=== PATIENT | female | born 1995 | race Caucasian/White ===

== ENCOUNTER → 2016-08-12 | Outpatient (CLI) | payer MEDICAID ==
[~2016-08-12] MED LIST: DOCU-30 PO; HYDR-3240 PO; IBUP-1222 PO; PREN1TAB56 PO; ZOLP10TA PO
== END | disposition home or self-care (01) ==
LOC: RAD 10:30
PROVIDERS: ATTEND Student in an Organized Health Care Education/Training Program
DX: R10.2 Pelvic and perineal pain (principal); R10.9 Unspecified abdominal pain; Z97.5 Presence of (intrauterine) contraceptive device
CPT/HCPCS: 76856

== ENCOUNTER 2016-11-02 16:59 | Emergency (ER) | payer MEDICAID ==
[~2016-11-02] VITALS: Ht 175.3 cm; Wt 76.4 kg
[2016-11-02 18:17] LABS: ASPARTATE AMINO TRANSFERASE 14 U/L (15-37); BLOOD UREA NITROGEN 13 mg/dL (7-18)
[2016-11-02] MEDS ORDERED: ONDANSETRON ODT 4 MG PO ONE (19:30)
[2016-11-02 20:07] LABS: HCG UR OBC PASS
[2016-11-02 20:31] VITALS: BP 105/57
== END 2016-11-02 21:07 | disposition home or self-care (01) ==
LOC: ED 21:06
DX: R10.2 Pelvic and perineal pain (principal); Z88.8 Allergy status to other drugs, medicaments and biological substances
CPT/HCPCS: 36415; 76830; 80053; 81003; 81025; 84703; 85025; 99285

== ENCOUNTER 2020-07-01 16:34 | Emergency (ER) | payer SELFPAY ==
[~2020-07-01] VITALS: Ht 180.3 cm; Wt 65.1 kg
[~2020-07-01 16:34] MED LIST changes: +DOCU-131 PO; -DOCU-30 PO; +HYDR-1067 PO; -HYDR-3240 PO
[2020-07-01] MEDS ORDERED: METOCLOPRAMIDE 5 MG/ML, 2ML IVPush ONE (17:30)
[2020-07-01] MEDS ORDERED: KETOROLAC 30 MG/1 ML IVPush ONE (17:30)
[2020-07-01] MEDS ORDERED: SODIUM CHLORIDE 0.9% 1,000ML IVBOLUS ONE (17:30)
[2020-07-01] MEDS ORDERED: DIPHENHYDRAMINE 50 MG/ML, 1ML IM ONE (17:30)
[2020-07-01] MEDS ORDERED: KETOROLAC 30 MG/1 ML ONE (17:32)
[2020-07-01] MEDS ORDERED: DIPHENHYDRAMINE 50 MG/ML, 1ML ONE (17:32)
[2020-07-01] MEDS ORDERED: METOCLOPRAMIDE 5 MG/ML, 2ML ONE (17:32)
[2020-07-01 18:35] VITALS: BP 98/57
== END 2020-07-01 19:20 | disposition home or self-care (01) ==
LOC: ED 19:00
DX: G43.909 Migraine, unspecified, not intractable, without status migrainosus (principal); R11.0 Nausea; H53.149 Visual discomfort, unspecified
CPT/HCPCS: 96361; 96372; 96374; 96375; 99284; J1200; J1885; J2765; J7030

== ENCOUNTER 2020-08-21 12:54 | Emergency (ER) | payer MEDICAID ==
[~2020-08-21] VITALS: Ht 180.3 cm; Wt 65.9 kg
[~2020-08-21 12:54] MED LIST changes: -HYDR-1067 PO; +HYDR-2214 PO
--- NOTE | 2020-08-21 13:21 | NUR ---
INTERPRETIVE NATURALIST: PT PROVIDED URINE SAMPLE. UA ORDERED PER PROTOCOL AND SENT TO LAB.
[2020-08-21 13:39] LABS: MICROSCOPIC NOT IND
--- NOTE | 2020-08-21 14:06 | NUR ---
DUMPLING MACHINE OPERATOR: PT TO ROOM FROM LOBBY VIA W/C
[2020-08-21] MEDS ORDERED: ONDANSETRON 2MG/ML, 2ML ONE (14:23)
[2020-08-21] MEDS ORDERED: SODIUM CHLORIDE 0.9% 1,000ML IVBOLUS ONE (14:30)
[2020-08-21] MEDS ORDERED: ONDANSETRON 2MG/ML, 2ML IVPush ONE (14:30)
[2020-08-21 14:39] LABS: MEAN CORPUSCULAR HEMOGLOBIN 27.3 pg (27.0-34.8); MEAN CORPUSCULAR HGB CONC 33.5 g/dL (32.4-35.8); MEAN PLATELET VOLUME 8.1 fL (7.4-10.4); PLATELET COUNT 379 x10^3/uL (130-400); RED BLOOD COUNT 4.56 x10^6/uL (3.82-5.3); RED CELL DISTRIBUTION WIDTH 13.7 % (9.6-15.2)
--- NOTE | 2020-08-21 14:40 | NUR ---
IV PLACED, MEDS AND IVF GIVEN PER ERP ORDER. CALL LIGHT WITHIN REACH, WARM BLANKET PROVIDED. VSS/UPDATED IN COMPUTER.
[2020-08-21 14:44] LABS: ALBUMIN 3.4 g/dL (3.4-5.0); ANION GAP 4 mmol/L (5-15); CALCIUM 8.5 mg/dL (8.5-10.1); CHLORIDE 107 mmol/L (98-107)
[2020-08-21 14:49] LABS: ALANINE AMINOTRANSFERASE 22 U/L (12-78); ALKALINE PHOSPHATASE 63 U/L (45-117); BILIRUBIN,TOTAL 0.8 mg/dL (0.2-1.0); CREATININE 0.53 mg/dL (0.55-1.02)
[2020-08-21 15:13] LABS: MD YES
[2020-08-21 15:16] LABS: <PLATELET ESTIMATE> ADEQUATE; <PLT MORPHOLOGY> NORMAL PLT MORPH; BAND#(MANUAL) 0.28 x10^3/uL; BANDS%(MANUAL) 3 % (0-7); LYMPH#(MANUAL) 1.21 x10^3/uL (1-3.4); LYMPHS% (MANUAL) 13 % (22-44); OVALOCYTES 1+; REACTIVE LYMPHS # (MANUAL) 0.09 x10^3/uL (0-0); REACTIVE LYMPHS % (MANUAL) 1 % (0-0); SEG#(MANUAL) 7.72 x10^3/uL (1.8-6.8); SEGS% (MANUAL) 83 % (42-75)
[2020-08-21] MEDS ORDERED: MORPHINE SULFATE 4 MG/ML, 1ML ONE ×2 (15:29→17:58)
[2020-08-21] MEDS: MORPHINE SULFATE 4 MG/ML, 1ML IVPush PRN ×2 (15:32→18:07)
--- NOTE | 2020-08-21 15:35 | NUR ---
PT MEDICATED PER ERP ORDER FOR ABD PAIN 11/25. NAUSEA GONE FOLLOWING ZOFRAN EARLIER. PT UPDATED ON POC. CALL LIGHT WITHIN REACH.
--- NOTE | 2020-08-21 16:57 | NUR ---
PT TO CT.
[2020-08-21] MEDS ORDERED: OMNIPAQUE 350 MG/ML, 100ML BOTTLE ONE (17:10)
[2020-08-21 18:08] VITALS: BP 96/50
== END 2020-08-21 18:10 | disposition home or self-care (01) ==
LOC: ED 14:49
DX: K52.9 Noninfective gastroenteritis and colitis, unspecified (principal); R10.31 Right lower quadrant pain; R11.2 Nausea with vomiting, unspecified; G43.909 Migraine, unspecified, not intractable, without status migrainosus
CPT/HCPCS: 36415; 74177; 80053; 81003; 83690; 84703; 85025; 86850; 86900; 96374; 96375; 96376; 99285; J2270; J2405; J7030; Q9967

== ENCOUNTER 2020-08-26 19:48 | Emergency (ER) | payer MEDICAID ==
[~2020-08-26] VITALS: Ht 180.3 cm; Wt 63.7 kg
[2020-08-26 20:01] VITALS: BP 98/71
[2020-08-26 20:22] LABS: BASOPHILS % (AUTO) 1 % (0-1); EOSINOPHILS % (AUTO) 2 % (1-7); LYMPHOCYTES % (AUTO) 26 % (22-44); MEAN CORPUSCULAR HEMOGLOBIN 27.6 pg (27.0-34.8); MEAN CORPUSCULAR HGB CONC 33.7 g/dL (32.4-35.8); MEAN PLATELET VOLUME 7.6 fL (7.4-10.4); MONOCYTES % (AUTO) 6 % (2-9); NEUTROPHILS % (AUTO) 66 % (42-75); PLATELET COUNT 413 x10^3/uL (130-400); RED BLOOD COUNT 5.08 x10^6/uL (3.82-5.3); RED CELL DISTRIBUTION WIDTH 14.3 % (9.6-15.2)
[2020-08-26 20:24] LABS: MD NO
[2020-08-26] MEDS ORDERED: PROMETHAZINE 25 MG/ML, 1ML IM ONE (20:30)
[2020-08-26] MEDS ORDERED: SODIUM CHLORIDE 0.9% 1,000ML IVBOLUS ONE (20:30)
[2020-08-26 20:35] LABS: ALANINE AMINOTRANSFERASE 26 U/L (12-78); ANION GAP 3 mmol/L (5-15); CALCIUM 9.5 mg/dL (8.5-10.1); CHLORIDE 103 mmol/L (98-107); CREATININE 0.66 mg/dL (0.55-1.02)
[2020-08-26 20:37] LABS: ALKALINE PHOSPHATASE 60 U/L (45-117); BILIRUBIN,TOTAL 1.1 mg/dL (0.2-1.0); TOTAL PROTEIN 8.2 g/dL (6.4-8.2)
--- NOTE | 2020-08-26 22:15 | NUR ---
PT TO ROOM FROM LOBBY
[2020-08-26] MEDS ORDERED: PROMETHAZINE 25 MG/ML, 1ML ONE (22:22)
[2020-08-26] MEDS ORDERED: MORPHINE SULFATE 4 MG/ML, 1ML IVPush PRN (22:30)
[2020-08-26] MEDS ORDERED: MORPHINE SULFATE 4 MG/ML, 1ML ONE (22:48)
--- NOTE | 2020-08-26 23:19 | NUR ---
pt laying in bed with significant other at bedside, all needs in reach, call light in reach, pt was having severe abdominal pain and nausea, meds given, pt states she is feeling a little better now
--- NOTE | 2020-08-26 23:44 | NUR ---
pt asked to go to the bathroom, this RN disconnected pt from iv, pt ambulated to the bathroom
== END 2020-08-27 00:26 | disposition home or self-care (01) ==
LOC: ED 23:03
DX: K52.9 Noninfective gastroenteritis and colitis, unspecified (principal); R10.84 Generalized abdominal pain; F17.210 Nicotine dependence, cigarettes, uncomplicated
CPT/HCPCS: 36415; 80053; 84703; 85025; 96372; 96374; 99284; 99406; J2270; J2550; J7030

== ENCOUNTER 2020-08-28 17:41 | Inpatient (IN) | payer MEDICAID ==
[~2020-08-28] VITALS: Ht 180.3 cm; Wt 66.9 kg
--- NOTE | 2020-08-28 18:03 | NUR ---
PATIENT WALKED BACK FROM TRIAGE WITH CHIEF C/O OF ABD PAIN AND LOSS OF APPETITE. PER PATIENT ISSUE HAS BEEN ONGOING FOR THE LAST WEEK. PATIENT HAS BEEN SEEN X2 IN THE LAST WEEK. PATIENT REPORTS N/V/D AND STATES IT'S DUE TO AN AUTOIMMUNE DISEASE. NADN, CONNECTED TO ALL MONITORS, CALL LIGHT WITHIN REACH.
--- NOTE | 2020-08-28 18:10 | NUR ---
ERMD AT BEDSIDE FOR EVALUATION.
[2020-08-28] MEDS ORDERED: ONDANSETRON 2MG/ML, 2ML ONE (18:27)
--- NOTE | 2020-08-28 18:29 | NUR ---
20 GAUGE IV STARTED RIGHT UPPER ARM, LABS DRAWN, LABELLED AND GIVEN TO HOLIDAY DETECTOR OPERATOR, PATIENT MEDICATED PER eMAR. UA COLLECTED AND SENT TO LAB.
[2020-08-28] MEDS ORDERED: SODIUM CHLORIDE FLUSH 10ML SYR IVF ONE (18:30)
[2020-08-28] MEDS ORDERED: SODIUM CHLORIDE 0.9% 1,000ML IVBOLUS ONE (18:30)
[2020-08-28] MEDS ORDERED: ONDANSETRON 2MG/ML, 2ML IVPush ONE (18:30)
[2020-08-28 18:35] LABS: BASOPHILS % (AUTO) 1 % (0-1); EOSINOPHILS % (AUTO) 2 % (1-7); LYMPHOCYTES % (AUTO) 26 % (22-44); MEAN CORPUSCULAR HEMOGLOBIN 27.2 pg (27.0-34.8); MEAN PLATELET VOLUME 7.8 fL (7.4-10.4); MONOCYTES % (AUTO) 10 % (2-9); NEUTROPHILS % (AUTO) 61 % (42-75); PLATELET COUNT 339 x10^3/uL (130-400); RED BLOOD COUNT 4.68 x10^6/uL (3.82-5.3)
[2020-08-28 18:43] LABS: ALANINE AMINOTRANSFERASE 37 U/L (12-78); ALBUMIN 3.7 g/dL (3.4-5.0); ANION GAP 5 mmol/L (5-15); CALCIUM 8.9 mg/dL (8.5-10.1); CHLORIDE 104 mmol/L (98-107); CREATININE 0.53 mg/dL (0.55-1.02)
[2020-08-28 18:47] LABS: ALKALINE PHOSPHATASE 63 U/L (45-117); BILIRUBIN,TOTAL 0.8 mg/dL (0.2-1.0); TOTAL PROTEIN 7.4 g/dL (6.4-8.2)
[2020-08-28 18:52] LABS: MD NO
[2020-08-28 18:57] LABS: MICROSCOPIC INDICATED
[2020-08-28 19:56] LABS: HCT (SEDRATE) 38.5 % (34.6-47.8)
[2020-08-28] MEDS ORDERED: SODIUM CHLORIDE FLUSH 10ML SYR IVF PRN (20:00)
[2020-08-28] MEDS ORDERED: SODIUM CHLORIDE 0.9% 1,000 ML IV ONE (20:00)
[2020-08-28] MEDS ORDERED: ONDANSETRON 2MG/ML, 2ML IVPush PRN (20:30)
[2020-08-28] MEDS ORDERED: BISACODYL 10 MG SUPP PR PRN (20:30)
[2020-08-28 20:47] VITALS: BP 91/60
[2020-08-28] MEDS: PROCHLORPERAZINE 5 MG/ML, 2ML IVPush PRN (21:58)
[2020-08-28] MEDS: SODIUM CHLORIDE 0.9% 1,000 ML IV SCH (21:58)
[2020-08-28] MEDS: HYDROmorphone 2 MG/ML, 1ML IVPush PRN (21:58)
[2020-08-29 00:25] VITALS: BP 93/57
[2020-08-29] MEDS: HYDROmorphone 2 MG/ML, 1ML IVPush PRN ×4 (01:07→14:06)
[2020-08-29 05:21] LABS: BASOPHILS % (AUTO) 1 % (0-1); EOSINOPHILS % (AUTO) 4 % (1-7); LYMPHOCYTES % (AUTO) 43 % (22-44); MEAN CORPUSCULAR HEMOGLOBIN 27.4 pg (27.0-34.8); MEAN CORPUSCULAR HGB CONC 33.3 g/dL (32.4-35.8); MEAN PLATELET VOLUME 7.7 fL (7.4-10.4); MONOCYTES % (AUTO) 11 % (2-9); NEUTROPHILS % (AUTO) 41 % (42-75); PLATELET COUNT 290 x10^3/uL (130-400); RED BLOOD COUNT 4.04 x10^6/uL (3.82-5.3)
[2020-08-29 05:23] LABS: MD NO
[2020-08-29 05:30] LABS: ANION GAP 3 mmol/L (5-15); CALCIUM 8.1 mg/dL (8.5-10.1); CHLORIDE 110 mmol/L (98-107); CREATININE 0.39 mg/dL (0.55-1.02)
[2020-08-29] MEDS: SODIUM CHLORIDE 0.9% 1,000 ML IV SCH ×2 (05:38→14:07)
[2020-08-29 06:20] VITALS: BP 94/60
[2020-08-29] MEDS: PROCHLORPERAZINE 5 MG/ML, 2ML IVPush PRN (10:30)
[2020-08-29] MEDS ORDERED: OMNIPAQUE 350 MG/ML, 100ML BOTTLE ONE (14:02)
[2020-08-29 14:09] VITALS: BP 110/69
== END 2020-08-29 17:02 | disposition left against medical advice (07) | DRG 544 ==
LOC: ED 18:36 → EDIP 19:32 → 3N 20:36
PROVIDERS: ADMIT Internal Medicine; ATTEND Internal Medicine
DX: M31.30 Wegener's granulomatosis without renal involvement (principal); Z53.29 Procedure and treatment not carried out because of patient's decision for other reasons; F12.90 Cannabis use, unspecified, uncomplicated; G43.909 Migraine, unspecified, not intractable, without status migrainosus; K21.9 Gastro-esophageal reflux disease without esophagitis; N80.9 Endometriosis, unspecified; Z88.8 Allergy status to other drugs, medicaments and biological substances
CPT/HCPCS: 36415; 74177; 80048; 80053; 81001; 83690; 83735; 84703; 85025; 85651; 87086; G0378; J1170; J2405; Q9967; J0780; J7030

== ENCOUNTER 2020-11-21 11:22 | Emergency (ER) | payer MEDICAID ==
[~2020-11-21] VITALS: Ht 180.3 cm; Wt 62.4 kg
--- NOTE | 2020-11-21 11:33 | NUR ---
retention manager: EKG done in triage
[2020-11-21] MEDS ORDERED: MAALOX/HYOSCYAMINE/LIDOCAINE 45 ML BTL PO ONE (12:00)
[2020-11-21] MEDS ORDERED: FAMOTIDINE 20 MG/2 ML IVPush ONE (12:00)
[2020-11-21] MEDS ORDERED: SODIUM CHLORIDE 0.9% 1,000ML IVBOLUS ONE (12:00)
[2020-11-21] MEDS ORDERED: ONDANSETRON 2MG/ML, 2ML IVPush ONE (12:00)
[2020-11-21] MEDS ORDERED: ONDANSETRON 2MG/ML, 2ML ONE (12:17)
[2020-11-21] MEDS ORDERED: FAMOTIDINE 20 MG/2 ML ONE (12:17)
[2020-11-21] MEDS ORDERED: MAALOX/HYOSCYAMINE/LIDOCAINE 45 ML BTL ONE (12:17)
[2020-11-21 12:23] LABS: BASOPHILS % (AUTO) 1 % (0-1); EOSINOPHILS % (AUTO) 5 % (1-7); LYMPHOCYTES % (AUTO) 40 % (22-44); MEAN CORPUSCULAR HEMOGLOBIN 28.1 pg (27.0-34.8); MEAN CORPUSCULAR HGB CONC 34.1 g/dL (32.4-35.8); MEAN PLATELET VOLUME 8.4 fL (7.4-10.4); MONOCYTES % (AUTO) 8 % (2-9); NEUTROPHILS % (AUTO) 46 % (42-75); PLATELET COUNT 274 x10^3/uL (130-400); RED BLOOD COUNT 4.55 x10^6/uL (3.82-5.3); RED CELL DISTRIBUTION WIDTH 14.6 % (9.6-15.2)
--- NOTE | 2020-11-21 12:30 | NUR ---
PT OFF THE FLOOR TO XRAY
[2020-11-21 12:35] LABS: ALANINE AMINOTRANSFERASE 18 U/L (12-78); ALBUMIN 3.6 g/dL (3.4-5.0); ANION GAP 3 mmol/L (5-15); CALCIUM 8.8 mg/dL (8.5-10.1); CHLORIDE 110 mmol/L (98-107); CREATININE 0.52 mg/dL (0.55-1.02)
[2020-11-21 12:40] LABS: ALKALINE PHOSPHATASE 59 U/L (45-117); BILIRUBIN,TOTAL 0.9 mg/dL (0.2-1.0); TOTAL PROTEIN 7.6 g/dL (6.4-8.2)
[2020-11-21 13:05] LABS: MICROSCOPIC INDICATED
[2020-11-21] MEDS ORDERED: MORPHINE SULFATE 4 MG/ML, 1ML IVPush PRN (14:00)
[2020-11-21] MEDS ORDERED: MORPHINE SULFATE 4 MG/ML, 1ML ONE (14:25)
[2020-11-21 14:56] VITALS: BP 98/56
== END 2020-11-21 15:12 | disposition home or self-care (01) ==
LOC: ED 13:02
DX: N30.00 Acute cystitis without hematuria (principal); R10.84 Generalized abdominal pain; R11.2 Nausea with vomiting, unspecified; G43.909 Migraine, unspecified, not intractable, without status migrainosus
CPT/HCPCS: 36415; 74022; 80053; 81001; 83690; 84703; 85025; 87086; 93005; 96361; 96374; 96375; 99285; J2270; J2405; J7030

== ENCOUNTER 2020-11-25 14:23 | Emergency (ER) | payer MEDICAID ==
[~2020-11-25] VITALS: Ht 180.3 cm; Wt 52.2 kg
[2020-11-25 14:27] VITALS: BP 110/65
[2020-11-25] MEDS ORDERED: SODIUM CHLORIDE FLUSH 10ML SYR IVF ONE (15:00)
[2020-11-25] MEDS ORDERED: SODIUM CHLORIDE 0.9% 1,000ML IVBOLUS ONE (15:00)
[2020-11-25] MEDS ORDERED: ONDANSETRON 2MG/ML, 2ML IVPush ONE (15:00)
--- NOTE | 2020-11-25 15:11 | NUR ---
PT IN GOWN IN [facility]; PT ATTACHED TO ALL VS MONITORS. VSS AT THIS TIME. PT EDUCATED ON ER PROCESS AND POC AND VERBALIZES UNDERSTANDING. PT HAS CALL LIGHT WITHIN REACH.
[2020-11-25] MEDS ORDERED: ONDANSETRON 2MG/ML, 2ML ONE (15:14)
[2020-11-25] MEDS ORDERED: MORPHINE SULFATE 4 MG/ML, 1ML ONE ×2 (15:15→16:38)
[2020-11-25] MEDS: MORPHINE SULFATE 4 MG/ML, 1ML IVPush PRN ×2 (15:20→16:41)
--- NOTE | 2020-11-25 15:20 | NUR ---
pt medicated per mar
[2020-11-25 15:42] LABS: BASOPHILS % (AUTO) 1 % (0-1); EOSINOPHILS % (AUTO) 6 % (1-7); LYMPHOCYTES % (AUTO) 33 % (22-44); MEAN CORPUSCULAR HEMOGLOBIN 27.6 pg (27.0-34.8); MEAN CORPUSCULAR HGB CONC 33.6 g/dL (32.4-35.8); MEAN PLATELET VOLUME 8.6 fL (7.4-10.4); MONOCYTES % (AUTO) 8 % (2-9); NEUTROPHILS % (AUTO) 53 % (42-75); PLATELET COUNT 288 x10^3/uL (130-400); RED BLOOD COUNT 4.81 x10^6/uL (3.82-5.3); RED CELL DISTRIBUTION WIDTH 14.6 % (9.6-15.2)
[2020-11-25 15:53] LABS: ALBUMIN 3.8 g/dL (3.4-5.0); ANION GAP 4 mmol/L (5-15); CALCIUM 8.9 mg/dL (8.5-10.1); CHLORIDE 105 mmol/L (98-107)
[2020-11-25 15:59] LABS: ALANINE AMINOTRANSFERASE 24 U/L (12-78); ALKALINE PHOSPHATASE 69 U/L (45-117); TOTAL PROTEIN 7.9 g/dL (6.4-8.2)
[2020-11-25 16:16] LABS: MICROSCOPIC INDICATED
--- NOTE | 2020-11-25 16:30 | NUR ---
TASK RN: WITH REASSESSMENT NAUSEA COMPLETELY IMPROVED. HOWEVER, PAIN TO R/L LOWER PELVIS REMAIN. ERP MADE AWARE
[2020-11-25] MEDS ORDERED: MAALOX/HYOSCYAMINE/LIDOCAINE 45 ML BTL ONE (16:40)
[2020-11-25] MEDS ORDERED: KETOROLAC 30 MG/1 ML ONE (16:40)
[2020-11-25] MEDS ORDERED: MAALOX/HYOSCYAMINE/LIDOCAINE 45 ML BTL PO ONE (17:00)
[2020-11-25] MEDS ORDERED: KETOROLAC 15 MG/1ML IVPush ONE (17:00)
[2020-11-25] MEDS ORDERED: KETOROLAC 30 MG/1 ML IVPush ONE (17:00)
--- NOTE | 2020-11-25 17:01 | NUR ---
PO CHALLENGE UNREMARKABLE
--- NOTE | 2020-11-25 17:28 | NUR ---
PT D/C WITH D/C SUMMARY AND SCRIPTS. ALL QUESTIONS ANSWERED. PT AMBULATES TO REGISTRATION DESK WITH STEADY GAIT FOR D/C HOME. PT PIV D/C WITH TIP INTACT. PT DENIES ANY OTHER NEEDS PERTAINING TO THIS VISIT.
== END 2020-11-25 17:36 | disposition home or self-care (01) ==
LOC: ED 14:54
DX: R10.84 Generalized abdominal pain (principal); R11.2 Nausea with vomiting, unspecified; F17.200 Nicotine dependence, unspecified, uncomplicated; Z88.1 Allergy status to other antibiotic agents; Z88.7 Allergy status to serum and vaccine
CPT/HCPCS: 36415; 80053; 81001; 83690; 84703; 85025; 87086; 96361; 96374; 96375; 96376; 99284; J1885; J2270; J2405; J7030

== ENCOUNTER 2020-11-26 20:04 | Emergency (ER) | payer MEDICAID ==
[~2020-11-26] VITALS: Ht 180.3 cm; Wt 61.8 kg
[2020-11-26] MEDS ORDERED: ONDANSETRON ODT 4 MG PO ONE (21:00)
[2020-11-26 21:12] LABS: BASOPHILS % (AUTO) 0 % (0-1); EOSINOPHILS % (AUTO) 4 % (1-7); LYMPHOCYTES % (AUTO) 31 % (22-44); MEAN CORPUSCULAR HEMOGLOBIN 27.6 pg (27.0-34.8); MEAN CORPUSCULAR HGB CONC 33.7 g/dL (32.4-35.8); MEAN PLATELET VOLUME 8.3 fL (7.4-10.4); MONOCYTES % (AUTO) 9 % (2-9); NEUTROPHILS % (AUTO) 56 % (42-75); PLATELET COUNT 289 x10^3/uL (130-400); RED BLOOD COUNT 4.71 x10^6/uL (3.82-5.3); RED CELL DISTRIBUTION WIDTH 14.9 % (9.6-15.2)
[2020-11-26 21:24] LABS: ALANINE AMINOTRANSFERASE 22 U/L (12-78); ALBUMIN 3.9 g/dL (3.4-5.0); ANION GAP 4 mmol/L (5-15); CALCIUM 8.9 mg/dL (8.5-10.1); CHLORIDE 104 mmol/L (98-107); CREATININE 0.62 mg/dL (0.55-1.02)
[2020-11-26 21:28] LABS: ALKALINE PHOSPHATASE 70 U/L (45-117); BILIRUBIN,TOTAL 0.8 mg/dL (0.2-1.0)
[2020-11-26] MEDS ORDERED: ONDANSETRON ODT 4 MG ONE (21:58)
[2020-11-26] MEDS ORDERED: PROMETHAZINE 25 MG/ML, 1ML ONE (22:16)
[2020-11-26] MEDS ORDERED: METOCLOPRAMIDE 5 MG/ML, 2ML ONE (22:16)
[2020-11-26] MEDS ORDERED: MORPHINE SULFATE 4 MG/ML, 1ML ONE (22:17)
[2020-11-26] MEDS ORDERED: SODIUM CHLORIDE FLUSH 10ML SYR IVF ONE (22:30)
[2020-11-26] MEDS ORDERED: PROMETHAZINE 25 MG/ML, 1ML IM ONE (22:30)
[2020-11-26] MEDS ORDERED: SODIUM CHLORIDE 0.9% 1,000ML IVBOLUS ONE (22:30)
[2020-11-26] MEDS ORDERED: METOCLOPRAMIDE 5 MG/ML, 2ML IVPush ONE (22:30)
[2020-11-26] MEDS ORDERED: MORPHINE SULFATE 4 MG/ML, 1ML IVPush PRN (22:30)
--- NOTE | 2020-11-26 22:45 | NUR ---
PATIENT UPDATED ON PLAN OF CARE. PT GIVEN MEDS PER MAR, TOLERATED WELL. PATIENT DENIES ANY ADDITIONAL NEEDS AT THIS TIME. VSS. WILL CONTINUE TO MONITOR.
[2020-11-27 00:01] VITALS: BP 98/56
== END 2020-11-27 00:03 | disposition home or self-care (01) ==
LOC: ED 22:02
DX: R10.84 Generalized abdominal pain (principal); R11.2 Nausea with vomiting, unspecified; G43.909 Migraine, unspecified, not intractable, without status migrainosus; F17.200 Nicotine dependence, unspecified, uncomplicated
CPT/HCPCS: 36415; 80053; 84703; 85025; 96361; 96372; 96374; 96375; 99284; J2270; J2550; J2765; J7030; Q0162

== ENCOUNTER 2020-11-30 16:51 | Emergency (ER) | payer MEDICAID ==
[~2020-11-30] VITALS: Ht 180.3 cm; Wt 61.6 kg
--- NOTE | 2020-11-30 17:35 | NUR ---
PT CAME INTO THE ED TODAY DUE TO CP/ABDOMINAL PAIN. STATES SHE WAS LAYING DOWN AT HOME AND HER STOMACH BEGAN TO HURT AND SHE WAS NAUSEATED, SHORTLY AFTER CHEST BEGAN TO BURN, RADIATING TO LEFT SHOULDER, +DIZZINESS. PT PLACED ON SPO2/BP/ECGMONITORING ON ARRIVAL. RESTING ON GURNEY, SO AT BS, BED IN LOWEST, RAILS ENGAGED, CALL LIGHT ON LAP, TIARRA HODGES AT BS FOR EVAL AND POC. WCTM.
[2020-11-30 17:40] LABS: BASOPHILS % (AUTO) 1 % (0-1); EOSINOPHILS % (AUTO) 5 % (1-7); LYMPHOCYTES % (AUTO) 35 % (22-44); MEAN CORPUSCULAR HEMOGLOBIN 27.2 pg (27.0-34.8); MEAN CORPUSCULAR HGB CONC 33.1 g/dL (32.4-35.8); MEAN PLATELET VOLUME 8.4 fL (7.4-10.4); MONOCYTES % (AUTO) 9 % (2-9); NEUTROPHILS % (AUTO) 50 % (42-75); PLATELET COUNT 286 x10^3/uL (130-400); RED BLOOD COUNT 4.82 x10^6/uL (3.82-5.3); RED CELL DISTRIBUTION WIDTH 14.7 % (9.6-15.2)
[2020-11-30 17:52] LABS: ALANINE AMINOTRANSFERASE 19 U/L (12-78); ALBUMIN 3.6 g/dL (3.4-5.0); ANION GAP 7 mmol/L (5-15); CALCIUM 9.6 mg/dL (8.5-10.1); CHLORIDE 106 mmol/L (98-107)
[2020-11-30] MEDS ORDERED: PROCHLORPERAZINE 5 MG/ML, 2ML ONE (17:56)
[2020-11-30] MEDS ORDERED: MAALOX/HYOSCYAMINE/LIDOCAINE 45 ML BTL ONE (17:56)
[2020-11-30 17:57] LABS: ALKALINE PHOSPHATASE 67 U/L (45-117); CREATININE 0.63 mg/dL (0.55-1.02); TOTAL PROTEIN 7.9 g/dL (6.4-8.2)
[2020-11-30] MEDS ORDERED: PROCHLORPERAZINE 5 MG/ML, 2ML IM ONE (18:00)
[2020-11-30] MEDS ORDERED: MAALOX/HYOSCYAMINE/LIDOCAINE 45 ML BTL PO ONE (18:00)
--- NOTE | 2020-11-30 18:32 | NUR ---
pt medicated per jun for nausea and burning chest pain. pt nad, resting on gurney, watching netflix with SO. Patient is resting comfortably in bed. Bed in lowest, rails engaged, call light on lap. WCTM.
[2020-11-30 19:13] VITALS: BP 93/59
--- NOTE | 2020-11-30 19:13 | NUR ---
Patient/SO given discharge instructions and they have confirmed that they understand the instructions. Patient ambulatory with steady gait. NAD, all questions answered appropriately, denies additional needs at this time. No personal belongings left in room after discharge.
== END 2020-11-30 19:32 | disposition home or self-care (01) ==
LOC: ED 18:16
DX: K21.9 Gastro-esophageal reflux disease without esophagitis (principal); G89.29 Other chronic pain; R10.84 Generalized abdominal pain; R07.89 Other chest pain; R11.0 Nausea
CPT/HCPCS: 36415; 71045; 80053; 83690; 84703; 85025; 93005; 96372; 99285; J0780